=== PATIENT | female | born 1985 | race African-American/Black ===

== ENCOUNTER 2017-07-15 15:15 | Inpatient (IN) | payer MEDICAID, OTHER ==
[~2017-07-15] VITALS: Ht 149.9 cm; Wt 73.1 kg
[~2017-07-15 15:15] MED LIST: LURA40 PO
[2017-07-15 16:19] LABS: AMPHET/METH SCREEN,URINE NEGATIVE (NEGATIVE); BARBITURATE SCREEN, URINE NEGATIVE (NEGATIVE); BENZODIAZEPINES SCREEN,URINE NEGATIVE (NEGATIVE); CANNABINOID SCREEN,URINE NEGATIVE (NEGATIVE); COCAINE SCREEN,URINE NEGATIVE (NEGATIVE); METHADONE SCREEN, URINE NEGATIVE (NEGATIVE); OPIATE SCREEN,URINE NEGATIVE (NEGATIVE); PHENCYCLIDINE SCREEN,URINE NEGATIVE (NEGATIVE)
[2017-07-15 16:22] LABS: BASOPHILS % (AUTO) 0.3 % (0.0-2.0); EOSINOPHILS % (AUTO) 1.3 % (1.0-6.0); HEMATOCRIT 37.1 % (36-46); HEMOGLOBIN 12.7 g/dL (12.0-16.0); LYMPHOCYTES # (AUTO) 2.6 K/uL (1.0-4.8); LYMPHOCYTES % (AUTO) 31.7 % (22.0-44.0); MEAN CORPUSCULAR HEMOGLOBIN 29.7 pg (26.0-34.0); MEAN CORPUSCULAR HGB CONC 34.3 G/dL (31.0-37.0); MEAN CORPUSCULAR VOLUME 87 fL (80-100); MONOCYTES # (AUTO) 0.5 K/uL (0.1-1.0); NEUTROPHILS # (AUTO) 4.9 K/uL (1.8-7.7); NEUTROPHILS % (AUTO) 60.7 % (40.0-70.0); PLATELET COUNT (AUTO) 240 K/uL (150-450); RED BLOOD CELL COUNT(AUTO) 4.28 MIL/uL (4.00-5.20); RED CELL DISTRIBUTION WIDTH 13.4 % (11.5-14.5)
[2017-07-15 16:31] LABS: ANION GAP 6 mmol/L (8-16); CALCIUM, TOTAL 8.1 mg/dL (8.8-10.5); CARBON DIOXIDE 30 mmol/L (22-29); CHLORIDE 103 mmol/L (98-107); CREATININE 0.87 mg/dL (0.60-1.30); GLOMERULAR FILTR. RATE CALC > 60 mL/min (>60); GLUCOSE,RANDOM 77 mg/dL (70-110); POTASSIUM 4.4 mmol/L (3.5-5.1); SODIUM SERUM 139 mmol/L (136-145); UREA NITROGEN, BLOOD 12 mg/dL (7-18)
[2017-07-15 16:39] LABS: ALANINE AMINOTRANSFERASE 23 U/L (12-78); ALBUMIN 3.4 g/dL (3.4-5.0); ALKALINE PHOSPHATASE 51 U/L (46-116); ASPARTATE AMINOTRANSFERASE 18 U/L (15-37); BILIRUBIN,TOTAL 0.4 mg/dL (0.1-1.0); TOTAL PROTEIN, SERUM 7.1 g/dL (6.4-8.2)
[2017-07-15] MEDS ORDERED: ZOLPIDEM TARTRATE 10 MG TABLET PO PRN (16:45)
[2017-07-15] MEDS ORDERED: HALOPERIDOL 5 MG TABLET PO PRN (16:45)
[2017-07-15] MEDS ORDERED: LORazepam 2 MG TABLET PO ONE (17:00)
[2017-07-15 20:08] VITALS: BP 100/67
[2017-07-15 21:15] VITALS: BP 100/61
[2017-07-16] MEDS ORDERED: INFLUENZA VIRUS VACCINE QVS 2017-18 (3YR+)/PF 60 MCG/0.5 ML SYRINGE IM ONE (02:30)
[2017-07-16 06:00] VITALS: BP 118/66
[2017-07-16 08:55] VITALS: BP 100/66
[2017-07-16] MEDS ORDERED: GuaiFENesin/D-METHORPHAN [SUGAR-FREE] 200-20MG/10 ML SYRUP UDCUP PO PRN (11:15)
[2017-07-16] MEDS ORDERED: TUBERCULIN, PURIFIED PROTEIN DERIVATIVE 5 TU/0.1 ML SYG ID ONE (11:15)
[2017-07-16] MEDS ORDERED: PROMETHAZINE HCL 25 MG TABLET PO PRN (11:15)
[2017-07-16] MEDS ORDERED: MAGNESIUM HYDROXIDE SUSPENSION 30 ML UDCUP PO PRN (11:15)
[2017-07-16] MEDS ORDERED: ACETAMINOPHEN 325 MG TABLET PO PRN (11:15)
[2017-07-16] MEDS ORDERED: LOPERAMIDE HCL 2 MG CAPSULE PO PRN (11:15)
[2017-07-16] MEDS ORDERED: MAG HYDROX/AL HYDROX/SIMETH ES 30 ML SUSPENSION UDCUP PO PRN (11:15)
[2017-07-16] MEDS: THIAMINE HCL 100 MG TABLET PO SCH (16:17)
[2017-07-16 16:25] VITALS: BP 115/81
[2017-07-16] MEDS: OLANZapine 5 MG RAPDIS TABLET PO SCH (21:00)
[2017-07-16] MEDS ORDERED: DIVALPROEX SODIUM 500 MG ER TABLET PO SCH (21:00)
[2017-07-17 05:05] VITALS: BP 120/71
[2017-07-17 08:25] VITALS: BP 123/88
[2017-07-17] MEDS: FOLIC ACID 1 MG TABLET PO SCH (10:07)
[2017-07-17] MEDS: THIAMINE HCL 100 MG TABLET PO SCH ×2 (10:07→17:00)
[2017-07-17] MEDS: MULTIVITAMINS WITH MINERALS, THERAPEUTIC TABLET PO SCH (10:07)
[2017-07-17 16:35] VITALS: BP 104/66
[2017-07-17] MEDS: LORazepam 2 MG TABLET PO PRN (17:01)
[2017-07-17] MEDS: HydrOXYzine PAMOATE 50 MG CAPSULE PO PRN (17:39)
[2017-07-17] MEDS: CarBAMazepine 200 MG TABLET PO SCH (21:00)
[2017-07-17] MEDS: OLANZapine 5 MG RAPDIS TABLET PO SCH (21:00)
[2017-07-18 06:24] VITALS: BP 123/70
[2017-07-18] MEDS: LORazepam 2 MG TABLET PO PRN ×2 (08:27→22:15)
[2017-07-18] MEDS: HydrOXYzine PAMOATE 50 MG CAPSULE PO PRN ×2 (08:27→16:34)
[2017-07-18] MEDS: OLANZapine 5 MG RAPDIS TABLET PO PRN ×2 (08:27→16:34)
[2017-07-18] MEDS: THIAMINE HCL 100 MG TABLET PO SCH ×2 (08:28→16:35)
[2017-07-18] MEDS: FOLIC ACID 1 MG TABLET PO SCH (08:28)
[2017-07-18] MEDS: MULTIVITAMINS WITH MINERALS, THERAPEUTIC TABLET PO SCH (08:28)
[2017-07-18 08:40] VITALS: BP 109/80
[2017-07-18 16:21] VITALS: BP 122/68
[2017-07-18] MEDS: CarBAMazepine 200 MG TABLET PO SCH ×2 (21:00→21:53)
[2017-07-18] MEDS: OLANZapine 5 MG RAPDIS TABLET PO SCH ×2 (21:00→21:53)
[2017-07-19 01:36] VITALS: BP 118/72
[2017-07-19 08:20] VITALS: BP 118/74
[2017-07-19] MEDS: MULTIVITAMINS WITH MINERALS, THERAPEUTIC TABLET PO SCH (09:02)
[2017-07-19] MEDS: FOLIC ACID 1 MG TABLET PO SCH (09:02)
[2017-07-19] MEDS: THIAMINE HCL 100 MG TABLET PO SCH (09:02)
[2017-07-19] MEDS: LORazepam 2 MG TABLET PO PRN (09:07)
[2017-07-19] MEDS ORDERED: CARB200T6 PO (14:14)
[2017-07-19] MEDS ORDERED: OLAN5TAB30 PO (14:14)
== END 2017-07-19 16:15 | disposition home or self-care (01) | DRG 750 ==
LOC: EMS 15:17 → B2S 16:54 → B3A 07-16 22:22
PROVIDERS: ADMIT Psychiatry & Neurology Psychiatry; ATTEND Psychiatry & Neurology Psychiatry
PROC: 3E0234Z Introduction of Serum, Toxoid and Vaccine into Muscle, Percutaneous Approach (ICD-10-PCS; principal; 2017-07-16)
DX: F25.9 Schizoaffective disorder, unspecified (principal); Z91.14 Patient's other noncompliance with medication regimen; E66.9 Obesity, unspecified; G47.00 Insomnia, unspecified; F43.10 Post-traumatic stress disorder, unspecified; F31.9 Bipolar disorder, unspecified; Z68.32 Body mass index [BMI] 32.0-32.9, adult; Z65.3 Problems related to other legal circumstances; Z59.0 Homelessness; Z23 Encounter for immunization
CPT/HCPCS: 90471; 99285; G0480

== ENCOUNTER 2017-07-22 13:59 | Emergency (ER) | payer MEDICAID ==
[~2017-07-22] VITALS: Ht 149.9 cm; Wt 71.8 kg
[~2017-07-22 13:59] MED LIST changes: +CARB200T6 PO; -LURA40 PO; +OLAN5TAB30 PO
[2017-07-22 16:21] LABS: BASOPHILS % (AUTO) 0.2 % (0.0-2.0); EOSINOPHILS % (AUTO) 0.9 % (1.0-6.0); HEMATOCRIT 35.5 % (36-46); LYMPHOCYTES # (AUTO) 2.2 K/uL (1.0-4.8); LYMPHOCYTES % (AUTO) 24.4 % (22.0-44.0); MEAN CORPUSCULAR HGB CONC 33.7 G/dL (31.0-37.0); MEAN CORPUSCULAR VOLUME 86 fL (80-100); MONOCYTES # (AUTO) 0.4 K/uL (0.1-1.0); MONOCYTES % (AUTO) 5.1 % (2.0-9.0); NEUTROPHILS # (AUTO) 6.1 K/uL (1.8-7.7); NEUTROPHILS % (AUTO) 69.4 % (40.0-70.0); PLATELET COUNT (AUTO) 267 K/uL (150-450); RED BLOOD CELL COUNT(AUTO) 4.13 MIL/uL (4.00-5.20); RED CELL DISTRIBUTION WIDTH 13.4 % (11.5-14.5)
[2017-07-22 16:29] LABS: AMPHET/METH SCREEN,URINE NEGATIVE (NEGATIVE); BARBITURATE SCREEN, URINE NEGATIVE (NEGATIVE); BENZODIAZEPINES SCREEN,URINE NEGATIVE (NEGATIVE); CANNABINOID SCREEN,URINE NEGATIVE (NEGATIVE); COCAINE SCREEN,URINE NEGATIVE (NEGATIVE); METHADONE SCREEN, URINE NEGATIVE (NEGATIVE); OPIATE SCREEN,URINE NEGATIVE (NEGATIVE)
[2017-07-22 16:31] LABS: ANION GAP 5 mmol/L (8-16); CALCIUM, TOTAL 8.5 mg/dL (8.8-10.5); CARBON DIOXIDE 28 mmol/L (22-29); CHLORIDE 103 mmol/L (98-107); CREATININE 0.71 mg/dL (0.60-1.30); GLOMERULAR FILTR. RATE CALC > 60 mL/min (>60); GLUCOSE,RANDOM 85 mg/dL (70-110); SODIUM SERUM 136 mmol/L (136-145); UREA NITROGEN, BLOOD 12 mg/dL (7-18)
[2017-07-22 16:37] LABS: ALANINE AMINOTRANSFERASE 27 U/L (12-78); ALBUMIN 3.5 g/dL (3.4-5.0); ALKALINE PHOSPHATASE 56 U/L (46-116); ASPARTATE AMINOTRANSFERASE 18 U/L (15-37); BILIRUBIN,TOTAL 0.3 mg/dL (0.1-1.0); TOTAL PROTEIN, SERUM 7.3 g/dL (6.4-8.2)
[2017-07-22 16:40] LABS: PHENCYCLIDINE SCREEN,URINE NEGATIVE (NEGATIVE)
[2017-07-22 17:00] VITALS: BP 121/76
== END 2017-07-22 17:49 | disposition home or self-care (01) ==
LOC: EMS 14:00
DX: F31.9 Bipolar disorder, unspecified (principal); F20.9 Schizophrenia, unspecified; G47.00 Insomnia, unspecified; F41.9 Anxiety disorder, unspecified
CPT/HCPCS: 36415; 80053; 80307; 85025; 99284; G0480

== ENCOUNTER 2017-08-03 21:03 | Inpatient (IN) | payer MEDICAID ==
[~2017-08-03] VITALS: Ht 149.9 cm; Wt 74.3 kg
[2017-08-03] MEDS ORDERED: CARB200T6 PO (21:14)
[2017-08-03] MEDS ORDERED: OLAN7.5T2 PO (21:14)
[2017-08-03 21:29] LABS: BASOPHILS % (AUTO) 0.6 % (0.0-2.0); EOSINOPHILS % (AUTO) 1.3 % (1.0-6.0); HEMATOCRIT 34.9 % (36-46); HEMOGLOBIN 11.8 g/dL (12.0-16.0); LYMPHOCYTES % (AUTO) 28.2 % (22.0-44.0); MEAN CORPUSCULAR HGB CONC 33.8 G/dL (31.0-37.0); MEAN CORPUSCULAR VOLUME 86 fL (80-100); MONOCYTES # (AUTO) 0.6 K/uL (0.1-1.0); MONOCYTES % (AUTO) 5.5 % (2.0-9.0); NEUTROPHILS # (AUTO) 6.8 K/uL (1.8-7.7); NEUTROPHILS % (AUTO) 64.4 % (40.0-70.0); PLATELET COUNT (AUTO) 252 K/uL (150-450); RED BLOOD CELL COUNT(AUTO) 4.06 MIL/uL (4.00-5.20); RED CELL DISTRIBUTION WIDTH 13.5 % (11.5-14.5)
[2017-08-03 21:39] LABS: ANION GAP 8 mmol/L (8-16); CALCIUM, TOTAL 8.6 mg/dL (8.8-10.5); CARBON DIOXIDE 26 mmol/L (22-29); CHLORIDE 106 mmol/L (98-107); CREATININE 0.55 mg/dL (0.60-1.30); GLOMERULAR FILTR. RATE CALC > 60 mL/min (>60); GLUCOSE,RANDOM 110 mg/dL (70-110); SODIUM SERUM 140 mmol/L (136-145); UREA NITROGEN, BLOOD 21 mg/dL (7-18)
[2017-08-03 21:45] LABS: ALANINE AMINOTRANSFERASE 25 U/L (12-78); ALBUMIN 3.3 g/dL (3.4-5.0); ALKALINE PHOSPHATASE 59 U/L (46-116); ASPARTATE AMINOTRANSFERASE 21 U/L (15-37); BILIRUBIN,TOTAL 0.1 mg/dL (0.1-1.0); TOTAL PROTEIN, SERUM 6.7 g/dL (6.4-8.2)
[2017-08-03 21:57] LABS: AMPHET/METH SCREEN,URINE NEGATIVE (NEGATIVE); BARBITURATE SCREEN, URINE NEGATIVE (NEGATIVE); BENZODIAZEPINES SCREEN,URINE NEGATIVE (NEGATIVE); CANNABINOID SCREEN,URINE NEGATIVE (NEGATIVE); COCAINE SCREEN,URINE NEGATIVE (NEGATIVE); METHADONE SCREEN, URINE NEGATIVE (NEGATIVE); OPIATE SCREEN,URINE NEGATIVE (NEGATIVE)
[2017-08-03 22:00] LABS: PHENCYCLIDINE SCREEN,URINE NEGATIVE (NEGATIVE)
[2017-08-03] MEDS ORDERED: ZOLPIDEM TARTRATE 10 MG TABLET PO PRN (23:15)
[2017-08-03] MEDS ORDERED: HALOPERIDOL 5 MG TABLET PO PRN (23:15)
[2017-08-04] MEDS: LORazepam 2 MG TABLET PO PRN (06:32)
[2017-08-04 14:24] VITALS: BP 106/77
[2017-08-04] MEDS ORDERED: -PHARMACY VACCINE NOTE- MISC ONE (14:30)
[2017-08-04 16:48] VITALS: BP 98/55
[2017-08-04] MEDS ORDERED: ACETAMINOPHEN 325 MG TABLET PO PRN (20:15)
[2017-08-04] MEDS ORDERED: IBUPROFEN 400 MG TABLET PO PRN (20:15)
[2017-08-05 02:00] VITALS: BP 103/62
[2017-08-05 07:12] LABS: HEMOGLOBIN A1C 5.4 % (4.5-6.2)
[2017-08-05 07:19] LABS: CHOL/HDL RATIO 2.2 (3.9-5.7); THYROID STIMULATING HORMONE 1.64 uIU/mL (0.36-3.74)
[2017-08-05 08:30] VITALS: BP 130/68
[2017-08-05] MEDS ORDERED: ACETAMINOPHEN 325 MG TABLET PO PRN (11:45)
[2017-08-05] MEDS ORDERED: GuaiFENesin/D-METHORPHAN [SUGAR-FREE] 200-20MG/10 ML SYRUP UDCUP PO PRN (11:45)
[2017-08-05] MEDS ORDERED: LOPERAMIDE HCL 2 MG CAPSULE PO PRN (11:45)
[2017-08-05] MEDS ORDERED: MAG HYDROX/AL HYDROX/SIMETH ES 30 ML SUSPENSION UDCUP PO PRN (11:45)
[2017-08-05] MEDS ORDERED: MAGNESIUM HYDROXIDE SUSPENSION 30 ML UDCUP PO PRN (11:45)
[2017-08-05] MEDS ORDERED: HydrOXYzine PAMOATE 50 MG CAPSULE PO PRN (11:45)
[2017-08-05] MEDS ORDERED: PROMETHAZINE HCL 25 MG TABLET PO PRN (11:45)
[2017-08-05] MEDS ORDERED: OLANZapine 5 MG RAPDIS TABLET PO PRN (11:45)
[2017-08-05] MEDS ORDERED: QUEtiapine FUMARATE 100 MG TABLET PO PRN (14:45)
[2017-08-05 17:10] VITALS: BP 122/93
[2017-08-05] MEDS: LORazepam 2 MG TABLET PO PRN (17:13)
[2017-08-05] MEDS: THIAMINE HCL 100 MG TABLET PO SCH (17:13)
[2017-08-05] MEDS: CarBAMazepine 200 MG TABLET PO SCH (21:00)
[2017-08-05] MEDS ORDERED: OLANZapine 5 MG RAPDIS TABLET PO SCH (21:00)
[2017-08-05] MEDS ORDERED: QUEtiapine FUMARATE 200 MG TABLET PO SCH (21:00)
[2017-08-06] MEDS: THIAMINE HCL 100 MG TABLET PO SCH ×2 (09:42→20:18)
[2017-08-06] MEDS: MULTIVITAMINS WITH MINERALS, THERAPEUTIC TABLET PO SCH (09:42)
[2017-08-06] MEDS: FOLIC ACID 1 MG TABLET PO SCH (09:42)
[2017-08-06 15:27] VITALS: BP 109/67
[2017-08-06] MEDS ORDERED: ARIPiprazole 5 MG TABLET PO PRN (15:45)
[2017-08-06] MEDS ORDERED: ARIPiprazole ER SUSPENSION 400 MG PRE-FILLED DUAL CHAMBER SYRINGE IM ONE (15:45)
[2017-08-06 16:15] VITALS: BP 106/71
[2017-08-06] MEDS ORDERED: TraMADol HCL 50 MG TABLET PO PRN (20:00)
[2017-08-06] MEDS: CarBAMazepine 200 MG TABLET PO SCH (20:20)
[2017-08-06] MEDS: ARIPiprazole 15 MG TABLET PO SCH (20:20)
[2017-08-06] MEDS ORDERED: LIDOCAINE HCL 1% 10 ML VIAL INJ ONE (21:45)
[2017-08-06] MEDS ORDERED: PERTUSS(ACELL),DIPH,TET VAC/PF 0.5 ML VIAL IM ONE (22:15)
[2017-08-06] MEDS: AMOX TR/POT CLAV 500 MG/125 MG TABLET PO SCH (22:43)
[2017-08-07 00:25] VITALS: BP 102/63
[2017-08-07 08:05] VITALS: BP 111/68
[2017-08-07] MEDS: AMOX TR/POT CLAV 500 MG/125 MG TABLET PO SCH ×2 (09:20→21:18)
[2017-08-07] MEDS: MULTIVITAMINS WITH MINERALS, THERAPEUTIC TABLET PO SCH (09:21)
[2017-08-07] MEDS: FOLIC ACID 1 MG TABLET PO SCH (09:21)
[2017-08-07] MEDS: THIAMINE HCL 100 MG TABLET PO SCH ×2 (09:21→17:26)
[2017-08-07] MEDS: ARIPiprazole 15 MG TABLET PO SCH (21:18)
[2017-08-07] MEDS: CarBAMazepine 200 MG TABLET PO SCH (21:19)
[2017-08-07 21:49] VITALS: BP 98/62
[2017-08-08 02:20] VITALS: BP 110/59
[2017-08-08 08:00] VITALS: BP 135/74
[2017-08-08] MEDS: FOLIC ACID 1 MG TABLET PO SCH (09:44)
[2017-08-08] MEDS: AMOX TR/POT CLAV 500 MG/125 MG TABLET PO SCH ×2 (09:44→20:54)
[2017-08-08] MEDS: THIAMINE HCL 100 MG TABLET PO SCH ×2 (09:45→17:01)
[2017-08-08] MEDS: MULTIVITAMINS WITH MINERALS, THERAPEUTIC TABLET PO SCH (09:45)
[2017-08-08] MEDS ORDERED: AMOX1TAB15 PO (11:57)
[2017-08-08] MEDS ORDERED: ARIP15TA2 PO (11:59)
[2017-08-08] MEDS ORDERED: CARB200T6 PO (11:59)
[2017-08-08] MEDS ORDERED: ARIP400S3 IM (11:59)
[2017-08-08 16:15] VITALS: BP 111/70
[2017-08-08] MEDS: CarBAMazepine 200 MG TABLET PO SCH (20:54)
[2017-08-08] MEDS: ARIPiprazole 15 MG TABLET PO SCH (20:54)
[2017-08-09] MEDS: AMOX TR/POT CLAV 500 MG/125 MG TABLET PO SCH (09:12)
[2017-08-09] MEDS: FOLIC ACID 1 MG TABLET PO SCH (09:12)
[2017-08-09] MEDS: MULTIVITAMINS WITH MINERALS, THERAPEUTIC TABLET PO SCH (09:12)
[2017-08-09] MEDS: THIAMINE HCL 100 MG TABLET PO SCH (09:12)
[2017-08-09 09:58] VITALS: BP 105/70
[2017-09-03] MEDS ORDERED: ARIPiprazole ER SUSPENSION 400 MG PRE-FILLED DUAL CHAMBER SYRINGE IM SCH (09:00)
== END 2017-08-09 09:45 | disposition home or self-care (01) | DRG 750 ==
LOC: EMS 21:04 → 3EI 08-04 12:14
PROVIDERS: ATTEND Psychiatry & Neurology Psychiatry
DX: F25.9 Schizoaffective disorder, unspecified (principal); E44.0 Moderate protein-calorie malnutrition; R45.851 Suicidal ideations; E83.52 Hypercalcemia; Z91.19 Patient's noncompliance with other medical treatment and regimen; E66.9 Obesity, unspecified; D64.9 Anemia, unspecified; F43.10 Post-traumatic stress disorder, unspecified; F31.9 Bipolar disorder, unspecified; F41.9 Anxiety disorder, unspecified; Z65.3 Problems related to other legal circumstances; Z99.2 Dependence on renal dialysis; Z79.899 Other long term (current) drug therapy; Z59.0 Homelessness; Z68.33 Body mass index [BMI] 33.0-33.9, adult; Z90.49 Acquired absence of other specified parts of digestive tract
CPT/HCPCS: 83036; 84443; 87081; 90715; 99285; G0480; J0401; J3490